=== PATIENT | female | born 2000 ===

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

== ENCOUNTER 2018-04-16 23:25 | Emergency (ER) | payer SELFPAY ==
[2018-04-17 00:10] VITALS: BP 100/68; PULSE 74; RESP 20; TEMP 98.6; O2SAT 99
[2018-04-17] MEDS ORDERED: Bacitracin 500 Units/gm Oint Foilpak UD TOP ONE (00:18)
[2018-04-17] MEDS ORDERED: Tdap Vaccine 0.5 ml Vial (10-64 yrs) IM ONE ×2 (00:18→00:24)
[2018-04-17] MEDS ORDERED: Amoxicillin-Clav 875-125 mg Tab PO STA (00:18)
[2018-04-17] MEDS ORDERED: Amoxicillin-Clav 875-125 mg Tab PO ONE (00:23)
[2018-04-17] MEDS ORDERED: Bacitracin 500 Units/gm Oint Foilpak UD ONE (00:24)
--- NOTE | 2018-04-17 00:53 | C.PDOC ---
History Of Present Illness 17 y/o female comes to ED after being bitten in the anterior right distal forearm by her own dog earlier today. States she had salmon wrappped in foil and dog tried to take it from her and bit her. Patient states dogs shots are all up to date including rabies.. Time Seen by Provider: 04/17/18 00:14 Chief Complaint (Nursing): Bite History Per: Patient History/Exam Limitations: no limitations Onset/Duration Of Symptoms: Hrs Current Symptoms Are (Timing): Still Present Past Medical History Reviewed: Historical Data, Nursing Documentation, Vital Signs Vital Signs: Last Vital Signs Temp 98.6 F 04/16/18 23:53 Pulse 74 04/16/18 23:53 Resp 20 04/16/18 23:53 BP 100/68 04/16/18 23:53 Pulse Ox 99 04/16/18 23:53 Family History: States: No Known Family Hx - Social History Hx Alcohol Use: No Hx Substance Use: No - Immunization History Hx Tetanus Toxoid Vaccination: No Hx Influenza Vaccination: No Hx Pneumococcal Vaccination: No Review Of Systems Skin: Positive for: Other (Bite on anterior right distal forearm). Negative for: Rash Neurological: Negative for: Weakness, Numbness Physical Exam - Physical Exam Appears: Non-toxic, No Acute Distress Skin: Warm, Dry Head: Atraumatic, Normacephalic Oral Mucosa: Moist Neck: Supple Chest: Symmetrical Cardiovascular: Rhythm Regular, No Murmur Respiratory: Normal Breath Sounds, No Rales, No Rhonchi, No Wheezing Extremity: Normal ROM, Capillary Refill (less than 2 seconds), Other ([place] mouth shaped abraded skin, no punctures to anterior distal right forearm) Extremity: Bilateral: Normal Color And Temperature Pulses: Left Radial: Normal, Right Radial: Normal Neurological/Psych: Oriented x3, Normal Speech, Normal Cognition, Normal Motor, Normal Sensation ED Course And Treatment O2 Sat by Pulse Oximetry: 99 (RA) Pulse Ox Interpretation: Normal Medical Decision Making Medical Decision Making: Plan: --Tdap --Augmentin PO --Bacitracin --Tylenol PO [pt bit by own dog, rabies vaccines utd. will update pts tdap, augmentin and tylenol Disposition Counseled Patient/Family Regarding: Diagnosis, Need For Followup, Rx Given - Disposition Referrals: Leanne Johnson MD [Staff Provider] - Disposition: HOME/ ROUTINE Disposition Time: 00:51 Condition: GOOD Additional Instructions: Keep wound clean and dry. Change dressing daily. wash with soap and water and apply antibiotic ointment. Take antibiotics until completed. Tylenol for pain if neededs. Return to ER if any sign of infection, such as redness. pus. fever. Prescriptions: Amoxicillin/Clavulanate [Augmentin 875 MG-125 MG] 1 tab PO BID #14 tab Instructions: Animal Bites (DC) Forms: [employer] ([place]), General Discharge Instructions - Clinical Impression Clinical Impression: Dog bite of right arm - PA / [employer] / Resident Statement MD/DO has reviewed & agrees with the documentation as recorded. - Scribe Statement The provider has reviewed the documentation as recorded by the Sherryibzurdo Stoll All medical record entries made by the Sherryibzurdo were at my direction and personally dictated by me. I have reviewed the chart and agree that the record accurately reflects my personal performance of the history, physical exam, medical decision making, and the department course for this patient. I have also personally directed, reviewed, and agree with the discharge instructions and disposition.
== END 2018-04-17 00:57 | disposition home or self-care (01) ==
LOC: C.ER 23:25
DX: S41.151A Open bite of right upper arm, initial encounter (principal); W54.0XXA Bitten by dog, initial encounter; Z23 Encounter for immunization